=== PATIENT | male | born 1995 | race Caucasian/White ===

== ENCOUNTER 2017-04-05 03:58 | Emergency (ER) | payer SELFPAY ==
[2017-04-05 04:05] VITALS: BP 139/81
--- NOTE | 2017-04-05 04:52 | ER Document Report ---
ED General - General Chief Complaint: Penile Problem Stated Complaint: POSSIBLE STD EXPOSURE Time Seen by Provider: 04/05/17 04:40 Mode of Arrival: Ambulatory Information source: Patient - HPI Notes: Patient presents with a three-day history of intermittent sensation of itching in his urethra. He questions whether or not it may have been related to a new para boxer's. The patient denies any fever or chills or back pain or nausea or vomiting or obvious skin rash. He states he's had the same sexual partner for the last 2 years. He reports no penile discharge. - Related Data Allergies/Adverse Reactions: No Known Allergies Allergy (Unverified 04/05/17 04:05) Past Medical History - General Information source: Patient - Social History Smoking Status: Unknown if Ever Smoked Frequency of alcohol use: None Drug Abuse: None Lives with: Alone Family History: Reviewed & Not Pertinent Patient has suicidal ideation: No Patient has homicidal ideation: No Renal/ Medical History: Denies: Hx Peritoneal Dialysis Review of Systems - Review of Systems Constitutional: denies: Fever Cardiovascular: No symptoms reported Respiratory: No symptoms reported Gastrointestinal: No symptoms reported. denies: Abdominal pain, Nausea, Vomiting Genitourinary: Dysuria. denies: Burning, Discharge, Frequency, Flank pain, Hematuria, Urgency Male Genitourinary: denies: Testicular pain, Penile discharge Musculoskeletal: denies: Back pain, Muscle pain Hematologic/Lymphatic: No symptoms reported Neurological/Psychological: denies: Weakness -: Yes All other systems reviewed and negative Physical Exam - Vital signs Vitals: Temp Pulse Resp BP Pulse Ox 98.1 F 60 20 139/81 H 98 04/05/17 04:02 04/05/17 04:02 04/05/17 04:02 04/05/17 04:02 04/05/17 04:02 - Notes Notes: PHYSICAL EXAMINATION: GENERAL: Well-appearing, well-nourished and in no acute distress. HEAD: Atraumatic, normocephalic. EYES: Pupils equal round and reactive to light, extraocular movements intact, sclera anicteric, conjunctiva are normal. ENT: Nares patent NECK: Normal range of motion, supple without lymphadenopathy ABDOMEN: Soft, nontender, nondistended abdomen. No guarding, no rebound. No masses appreciated. Musculoskeletal: Normal range of motion, no pitting or edema. No cyanosis. NEUROLOGICAL: normal gait. PSYCH: Normal mood, normal affect. SKIN: Warm, Dry, normal turgor, no rashes or lesions noted. Genitourinary exam circumcised male testicles descended and nontender no erythema and no discharge. no penile pain noted. No balanitis Course - Vital Signs Vital signs: Temp Pulse Resp BP Pulse Ox 98.1 F 60 20 139/81 H 98 04/05/17 04:02 04/05/17 04:02 04/05/17 04:02 04/05/17 04:02 04/05/17 04:02 Discharge - Discharge Clinical Impression: Dysuria Condition: Stable Disposition: HOME, SELF-CARE Instructions: Family Physicians / Practices Additional Instructions: Take Benadryl for any itching. Take ibuprofen for any pain. Return to the ED in case of discharge, swelling, fever.
[2017-04-05 05:42] LABS: APPEARANCE,URINE CLEAR; BILIRUBIN,URINE NEGATIVE (NEGATIVE); GLUCOSE, URINE NEGATIVE (NEGATIVE); KETONES,URINE NEGATIVE (NEGATIVE); LEUKOCYTE ESTERASE,URINE NEGATIVE (NEGATIVE); NITRITE,URINE NEGATIVE (NEGATIVE); PROTEIN,URINE NEGATIVE (NEGATIVE); URINE SPECIFIC GRAVITY 1.019; UROBILINOGEN,URINE NEGATIVE mg/dL (<2.0)
[2017-04-05 06:31] LABS: CHLAM PCR NOT DETECTED (NOT DETECT)
== END 2017-04-05 06:56 | disposition home or self-care (01) ==
LOC: ER 03:58
DX: R30.0 Dysuria (principal); L29.8 Other pruritus
CPT/HCPCS: 81001; 82962; 87491; 87591; 99283